=== PATIENT | male | born 1955 | race African-American/Black ===

== ENCOUNTER 2018-04-10 18:13 | Emergency (ER) | payer MEDICAID ==
[~2018-04-10] VITALS: Ht 175.3 cm; Wt 79.4 kg
[~2018-04-10 18:13] MED LIST: ASPIR 8181 MG ORAL; LISINOPRIL20 MG ORAL; LISINOPRIL5 MG ORAL
[2018-04-10 18:20] VITALS: BP 136/78
[2018-04-10] MEDS ORDERED: TYLENOL EXTRA500 MG ORAL (19:22)
[2018-04-10 19:27] VITALS: BP 136/78
[2018-04-10 19:28] VITALS: BP 118/75
--- NOTE | 2018-04-10 21:01 | Emergency Room Report ---
History of Present Illness General Chief Complaint: Head Injury Source: Patient Present Illness HPI 62-year-old male presents ED complaining of headache. States that he fell down the stairs approximately one month ago. At headaches on and off since. Had a headache earlier today. Throbbing, 10 out of 10, nonradiating. States that it resolved upon arrival. Denies any nausea or vomiting. Denies any blurry vision. No other aggravating relieving factors. Denies any other associated symptoms Allergies: Coded Allergies: No Known Allergies (Verified , 04/19/07) Patient History Past Medical History: CVA/TIA Past Surgical History: none Pertinent Family History: none Social History: Denies: smoking, alcohol use, drug use Immunizations: UTD Reviewed Nursing Documentation: PMH: Agreed; PSxH: Agreed Nursing Documentation-PMH Hx Hypertension: Yes Hx Cerebrovascular Accident: Yes Review of Systems All Other Systems: negative except mentioned in HPI Physical Exam Vital Signs Date Time Temp Pulse Resp B/P (MAP) Pulse Ox O2 Delivery O2 Flow Rate FiO2 04/10/18 18:08 98.6 82 16 136/78 98 Room Air 98.6 Sp02 EP Interpretation: reviewed, normal General Appearance: no apparent distress, alert, GCS 15, non-toxic Head: normocephalic, atraumatic Eyes: bilateral eye normal inspection, bilateral eye PERRL ENT: hearing grossly normal, normal pharynx, no angioedema, normal voice Neck: full range of motion, supple/symm/no masses Respiratory: chest non-tender, lungs clear, normal breath sounds, speaking full sentences Cardiovascular #1: regular rate, rhythm, no edema Cardiovascular #2: 2+ carotid (R), 2+ carotid (L), 2+ radial (R), 2+ radial (L) , 2+ dorsalis pedis (R), 2+ dorsalis pedis (L) Gastrointestinal: normal bowel sounds, non tender, soft, non-distended, no guarding, no rebound Rectal: deferred Genitourinary: normal inspection, no CVA tenderness Musculoskeletal: back normal, gait/station normal, normal range of motion, non- tender Neurologic: alert, oriented x3, responsive, motor strength/tone normal, sensory intact, speech normal Psychiatric: judgement/insight normal, memory normal, mood/affect normal, no suicidal/homicidal ideation Reflexes: 3+ bicep (R), 3+ bicep (L), 3+ tricep (R), 3+ tricep (L), 3+ knee (R) , 3+ knee (L) Skin: normal color, no rash, warm/dry, well hydrated Lymphatic: no adenopathy Medical Decision Making Diagnostic Impression: Primary Impression: Acute head injury Qualified Codes: S09.90XA - Unspecified injury of head, initial encounter ER Course Hospital Course 62year-old M presents ED complaining of headache s/p fall down stairs x 1 month Differential diagnoses include: skull fx, intracranial injury, concussion Clinical course Patient placed on stretcher. After initial history and physical I ordered CT head CT head shows no acute process. Clinical findings consistent with post concussive syndrome. Reassurance given Diagnosis - head injury Stable and discharged to home with Rx Tylenol. Followup with PMD. Return to ED if symptoms recur or worsen CT/MRI/US Diagnostic Results CT/MRI/US Diagnostic Results : Imaging Test Ordered: CT Head Impression no acute process Last Vital Signs Date Time Temp Pulse Resp B/P (MAP) Pulse Ox O2 Delivery O2 Flow Rate FiO2 04/10/18 19:28 98.6 89 16 118/75 98 Room Air 98.6 Status: improved Disposition: HOME, SELF-CARE Condition: Stable Scripts Acetaminophen* (TYLENOL EXTRA STRENGTH*) 500 Mg Tablet 500 MG ORAL Q8H PRN for Prn Headache/Temp > 101, #30 TAB 0 Refills Prov: Erwin Rodriguez MD 04/10/18 Referrals: [facility]ERR[facility] (PCP) Patient Instructions: Concussion, Adult, Lcki-or-Lyxi Erwin Rodriguez MD Apr 10, 2018 21:01
--- NOTE | 2018-04-11 09:26 | Diagnostic Imaging Report ---
Indications: Pain x1 month, status post fall Technique: Spiral acquisitions obtained through the brain. Angled axial and coronal 5 x 5 mm slices were reconstructed. Total dose length product 1432.35 mGycm. CTDI vol(s) 70.38 mGy. Dose reduction achieved using automated exposure control Comparison: 01/28/2010 Findings: There is mild age-related prominence of the ventricles and extra-axial CSF spaces. No acute intracranial hemorrhage or edema. No mass effect or midline shift. Normal riley-white differentiation. Intact calvarium. There is ethmoid and sphenoid sinus disease. Impression: Mild age-related changes. Negative for acute intracranial bleed or mass effect Sinus disease This agrees with the preliminary interpretation provided overnight by [facility] teleradiology service. The CT scanner at [facility] is accredited by the [employer] and the scans are performed using protocols designed to limit radiation exposure to as low as reasonably achievable to attain images of sufficient resolution adequate for diagnostic evaluation.
== END 2018-04-10 19:29 | disposition home or self-care (01) ==
LOC: EDBD 18:13 → EMR 18:15
DX: S09.90XA Unspecified injury of head, initial encounter (principal); W10.9XXA Fall (on) (from) unspecified stairs and steps, initial encounter; I10 Essential (primary) hypertension; Z86.73 Personal history of transient ischemic attack (TIA), and cerebral infarction without residual deficits
CPT/HCPCS: 70450; 99284

== ENCOUNTER 2019-11-11 09:51 | Emergency (ER) | payer MEDICARE, MEDICAID ==
[~2019-11-11] VITALS: Ht 175.3 cm; Wt 79.4 kg
[~2019-11-11 09:51] MED LIST changes: +TYLENOL EXTRA500 MG ORAL
[2019-11-11 10:22] VITALS: BP 164/93
--- NOTE | 2019-11-11 10:26 | NUR ---
ED Nurse Note:pt. came with generalized pain after recent fall
--- NOTE | 2019-11-11 12:21 | NUR ---
ED Nurse Note: patient taken to CT scan
--- NOTE | 2019-11-11 13:08 | NUR ---
ED Nurse Note: patient came back from CT in stable condition. patient is a/o x4 ambulatory with cane, from home, on a hospital gown and on a secured entrance monitor. reports chest pain on the left side radiating to his back since 11/08/18.
--- NOTE | 2019-11-11 13:10 | NUR ---
ED Nurse Note: sandwich/juice provided to the patient as per Dr. Dennis.
[2019-11-11 13:18] LABS: BASOPHILS % (AUTO) 1.1 % (0.0-2.0); EOSINOPHILS % (AUTO) 2.4 % (0.0-3.0); HEMATOCRIT 45.6 % (42.0-52.0); HEMOGLOBIN 15.1 G/DL (14.2-18.0); LYMPHOCYTES % (AUTO) 41.1 % (20.0-45.0); MEAN CORPUSCULAR VOLUME 88 FL (80-99); NEUTROPHILS % (AUTO) 47.5 % (45.0-75.0); PLATELET COUNT 263 K/UL (150-450); RED CELL DISTRIBUTION WIDTH 12.9 % (11.6-14.8); WHITE BLOOD COUNT 4.8 K/UL (4.8-10.8)
[2019-11-11 13:25] LABS: ANION GAP 6 mmol/L (5-15); BLOOD UREA NITROGEN 13 mg/dL (7-18); CALCIUM 8.8 MG/DL (8.5-10.1); CARBON DIOXIDE 29 MMOL/L (21-32); CHLORIDE 107 MMOL/L (98-107); CREATININE 1.3 MG/DL (0.55-1.30); POTASSIUM 3.9 MMOL/L (3.5-5.1); SODIUM 142 MMOL/L (136-145)
--- NOTE | 2019-11-11 13:29 | Emergency Room Report ---
History of Present Illness General Chief Complaint: Pain Source: Patient Present Illness HPI 64-year-old male presents to emergency room status post frequent falls. He reports last fall 3 days ago where he bruised his left chest. He is reporting pain over the left side of his lower ribs. He denies any headache, nausea, vomiting. He does not remember if he hit his head. He is not on any anticoagulation. His history is significant for prior CVA, hypertension, smoking. He is supposed to be on aspirin but he does not take it. Allergies: Coded Allergies: No Known Allergies (Verified , 04/19/07) Nursing Documentation-[facility] Past Medical History: No Stated History Hx Hypertension: Yes Hx Cerebrovascular Accident: Yes Review of Systems Constitutional: Denies: chills, fever Respiratory: Denies: cough, shortness of breath Cardiovascular: Reports: chest pain; Denies: palpitations Gastrointestinal: Denies: diarrhea, vomiting Genitourinary: Denies: hematuria, pain Musculoskeletal: Denies: joint swelling Skin: Denies: rash, lesions Neurological: Denies: headache, dizziness Physical Exam Vital Signs Date Time Temp Pulse Resp B/P (MAP) Pulse Ox O2 Delivery O2 Flow Rate FiO2 11/11/19 09:54 97.3 73 16 164/93 (116) 96 Room Air Sp02 EP Interpretation: reviewed General Appearance: well appearing, no apparent distress, non-toxic Head: normocephalic, atraumatic Eyes: bilateral eye normal inspection ENT: hearing grossly normal, EOM grossly intact, moist mucus membranes Neck: supple Respiratory: lungs clear, normal breath sounds, no respiratory distress, speaking full sentences Cardiovascular #1: regular rate, rhythm, normal capillary refill Cardiovascular #2: 2+ radial (R), 2+ radial (L) Gastrointestinal: soft, non-distended Rectal: deferred Musculoskeletal: moves extm spontaneously, no lower extremity edema Neurologic: alert, motor strength/tone normal, 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 Concern present for stroke and unsafe discharge home due to falls. Patient however is alert oriented x3 has normal judgment and decision-making capacity. Will perform head CT, lab testing and reevaluate. Laboratory Tests Test 11/11/19 12:55 11/11/19 14:10 White Blood Count 4.8 K/UL (4.8-10.8) Red Blood Count 5.20 M/UL (4.70-6.10) Hemoglobin 15.1 G/DL (14.2-18.0) Hematocrit 45.6 % (42.0-52.0) Mean Corpuscular Volume 88 FL (80-99) Mean Corpuscular Hemoglobin 29.0 PG (27.0-31.0) Mean Corpuscular Hemoglobin Concent 33.1 G/DL (32.0-36.0) Red Cell Distribution Width 12.9 % (11.6-14.8) Platelet Count 263 K/UL (150-450) Mean Platelet Volume 6.4 FL (6.5-10.1) L Neutrophils (%) (Auto) 47.5 % (45.0-75.0) Lymphocytes (%) (Auto) 41.1 % (20.0-45.0) Monocytes (%) (Auto) 8.0 % (1.0-10.0) Eosinophils (%) (Auto) 2.4 % (0.0-3.0) Basophils (%) (Auto) 1.1 % (0.0-2.0) Sodium Level 142 MMOL/L (136-145) Potassium Level 3.9 MMOL/L (3.5-5.1) Chloride Level 107 MMOL/L (98-107) Carbon Dioxide Level 29 MMOL/L (21-32) Anion Gap 6 mmol/L (5-15) Blood Urea Nitrogen 13 mg/dL (7-18) Creatinine 1.3 MG/DL (0.55-1.30) Estimate Glomerular Filtration Rate > 60 mL/min (>60) Glucose Level 79 MG/DL (74-106) Calcium Level 8.8 MG/DL (8.5-10.1) Troponin I 0.000 ng/mL (0.000-0.056) Urine Color Pale yellow Urine Appearance Clear Urine pH 5 (4.5-8.0) Urine Specific [place] 1.015 (1.005-1.035) Urine Protein 1+ (NEGATIVE) H Urine Glucose (UA) Negative (NEGATIVE) Urine Ketones Negative (NEGATIVE) Urine Blood 4+ (NEGATIVE) H Urine Nitrite Negative (NEGATIVE) Urine Bilirubin Negative (NEGATIVE) Urine Urobilinogen Normal MG/DL (0.0-1.0) Urine Leukocyte Esterase Negative (NEGATIVE) Urine RBC 2-4 /HPF (0 - 0) H Urine WBC 0-2 /HPF (0 - 0) Urine Squamous Epithelial Cells Occasional /LPF Urine Bacteria Occasional /HPF (NONE) EKG Diagnostic Results EKG Time: 12:48 EP Interpretation: Normal sinus rhythm rate of 64 Rate: normal Rhythm: NSR ST Segments: no acute changes Rhythm Strip Diag. Results Rhythm Strip Time: 13:50 EP Interpretation: yes Rhythm: NSR, no PVC's, no ectopy CT/MRI/US Diagnostic Results CT/MRI/US Diagnostic Results : Imaging Test Ordered: CT head Impression CT negative for bleeding, mass affect, shift Last Vital Signs Date Time Temp Pulse Resp B/P (MAP) Pulse Ox O2 Delivery O2 Flow Rate FiO2 11/11/19 10:22 97.3 16 164/93 96 Room Air 11/11/19 09:54 73 Reevaluation Impression Reviewed all testing and noted to be within normal limits at this time however due to frequent falls patient will require admission Insurance accepted patient's admission however would like patient to be transferred. Patient does not want to be transferred to another hospital for further testing of his frequent falls. Patient is willing to take risk of his life, with possibility of another fall, injury, loss of life or limb. Patient understands this work-up did not indicate why he is falling and he does need more testing. He understands that the benefit of admission means he could get further testing, and the risks listed above. Patient would still like to leave AGAINST MEDICAL ADVICE. He at this time is alert and oriented x3, has decisional making capacity and normal judgment. Disposition: AGAINST MEDICAL ADVICE Condition: Serious Scripts Acetaminophen* (TYLENOL EXTRA STRENGTH*) 500 Mg Tablet 500 MG ORAL Q8H PRN for Prn Headache/Temp > 101 for 10 Days, #30 TAB 0 Refills Prov: Homar Dennis M.D. 11/11/19 Homra Dennis M.D. Nov 11, 2019 13:29
[2019-11-11 14:20] LABS: APPEARANCE,URINE CLEAR; BILIRUBIN, URINE NEGATIVE (NEGATIVE); COLOR,URINE PALE YELLOW; GLUCOSE, URINE (UA) NEGATIVE (NEGATIVE); KETONES,URINE NEGATIVE (NEGATIVE); LEUKOCYTE ESTERASE ,URINE NEGATIVE (NEGATIVE); NITRITE,URINE NEGATIVE (NEGATIVE); PH,URINE 5 (4.5-8.0); PROTEIN,URINE 1+ (NEGATIVE); UROBILINOGEN,URINE NORMAL MG/DL (0.0-1.0)
[2019-11-11] MEDS ORDERED: TYLENOL EXTRA500 MG ORAL (15:38)
[2019-11-11 15:45] VITALS: BP 152/92
[2019-11-11] MEDS ORDERED: Acetaminophen 500mg (ES) tab ORAL ONE (15:45)
--- NOTE | 2019-11-11 16:04 | NUR ---
ED Nurse Note: IV removed by Nanci CHRISTOPHER.
[2019-11-11 16:05] VITALS: BP 152/92
--- NOTE | 2019-11-11 16:05 | NUR ---
AMA: SEE AMA FORM. patient signed AMA despite Dr. Dennis's instructions. patient states "I feel fine, I want to go home, I'm not meant to stay in the hospital."
--- NOTE | 2019-11-12 07:59 | Diagnostic Imaging Report ---
Indications: pain after recent fall Technique: Spiral acquisitions obtained through the brain. Angled axial and coronal 5 x 5 mm slices were reconstructed. Total dose length product 1583 mGycm. CTDI vol(s) 62 mGy. Dose reduction achieved using automated exposure control Comparison: None. Findings: There is mild age-related enlargement of the ventricles and extra axial CSF spaces. There is minimal periventricular date white matter low attenuation consistent with chronic ischemic change. There is a low-attenuation in the gaudencio and midbrain, artifact versus a small lacunar infarct, also evident previously. No acute intercranial hemorrhage or edema. No mass effect nor midline shift. There are differentiation is normal. The calvarium is intact. The mastoids are clear. Findings are overall unchanged. There is ethmoid sinus disease. Previously demonstrated sphenoid sinus disease has resolved Impression: Chronic and age-related changes Question old pontine lacunar infarct Negative for acute intracranial bleed or mass effect Sinus disease The CT scanner at [facility] is accredited by the [employer] and the scans are performed using protocols designed to limit radiation exposure to as low as reasonably achievable to attain images of sufficient resolution adequate for diagnostic evaluation.
--- NOTE | 2019-11-12 07:59 | Diagnostic Imaging Report ---
Enteric Indication: Technique: One view of the chest, 2 views of the left ribs Comparison: Chest compared to 01/28/2010 Findings: There is a 3.5 x 2.1 cm peripheral mass in the right hemithorax. This is not evident on the prior study. The remainder the lungs and pleural spaces are clear. No rib fracture demonstrated. No pneumothorax. The heart size is normal. There are degenerative changes of the left shoulder Impression: 3.5 x 2.1 cm peripheral right lung or pleural mass. Recommend further follow-up with chest CT. This finding was discussed by phone with Dr. Rodriguez in the emergency room at the time of interpretation No acute process otherwise. No evidence of rib fracture
== END 2019-11-11 16:05 | disposition left against medical advice (07) ==
LOC: EMR 10:33 → CANBEDREQ 15:47 → EMR 16:05
DX: R07.81 Pleurodynia (principal); I10 Essential (primary) hypertension; Z86.73 Personal history of transient ischemic attack (TIA), and cerebral infarction without residual deficits; W19.XXXA Unspecified fall, initial encounter; Z91.81 History of falling; Y92.9 Unspecified place or not applicable; F17.200 Nicotine dependence, unspecified, uncomplicated
CPT/HCPCS: 36415; 70450; 80048; 81003; 82962; 84484; 85025; 93005; 99284